=== PATIENT | female | born 1970 | race Two or more races ===

== ENCOUNTER 2024-01-23 13:40 | Emergency (ER) | payer SELFPAY ==
[~2024-01-23] VITALS: Ht 160 cm; Wt 77.1 kg
[2024-01-23] MEDS ORDERED: NAPROXEN 250 MG TABLET ONE (14:42)
[2024-01-23] MEDS: NAPROXEN 250 MG TABLET PO ONE (14:42)
[2024-01-23] MEDS ORDERED: IBUP-1490 PO (16:42)
[2024-01-23] MEDS ORDERED: ACET-2605 PO (16:42)
[2024-01-23 16:52] VITALS: BP 128/69; TEMP 98.7; O2SAT 98
== END 2024-01-23 16:52 | disposition home or self-care (01) ==
LOC: ER 13:49
DX: M25.561 Pain in right knee (principal); M25.511 Pain in right shoulder; M54.50 Low back pain, unspecified; W01.198A Fall on same level from slipping, tripping and stumbling with subsequent striking against other object, initial encounter; Y93.89 Activity, other specified; Y92.89 Other specified places as the place of occurrence of the external cause; Y99.8 Other external cause status
CPT/HCPCS: 72170-TC; 73030-TC; 73564-TC

== ENCOUNTER 2024-01-24 16:40 | Emergency (ER) | payer SELFPAY ==
[~2024-01-24] VITALS: Ht 160 cm; Wt 77.1 kg
[~2024-01-24 16:40] MED LIST: ACET-2605 PO; IBUP-1490 PO
[2024-01-24 17:15] LABS: BASOPHILS % (AUTO) 0.7 % (0.0-2.0); EOSINOPHILS # (AUTO) 0.2 K/uL (0.0-0.7); HEMATOCRIT 41 % (33-45); LYMPHOCYTES # (AUTO) 2.9 K/uL (0.8-4.8); LYMPHOCYTES % (AUTO) 42.9 % (20.0-44.0); MEAN CORPUSCULAR HEMOGLOBIN 29 PG (26.0-33.0); MEAN CORPUSCULAR HGB CONC 34 g/dl (31.0-36.0); MEAN CORPUSCULAR VOLUME 85 fL (82-100); MONOCYTES # (AUTO) 0.7 K/uL (0.1-1.30); MONOCYTES % (AUTO) 9.8 % (2.0-12.0); NEUTROPHILS # (AUTO) 2.9 K/uL (1.8-8.9); NEUTROPHILS % (AUTO) 43.6 % (43.0-81.0); PLATELET COUNT (AUTO) 286 K/uL (150-450); RED BLOOD CELL COUNT(AUTO) 4.81 MIL/uL (4.0-5.2); RED CELL DISTRIBUTION WIDTH 13.7 % (11.5-15.0); WHITE BLOOD COUNT (AUTO) 6.7 K/uL (4.3-11.0)
[2024-01-24 17:26] LABS: CALCIUM, SERUM 8.8 mg/dL (8.5-10.1); CARBON DIOXIDE 28 mmol/L (21-32); CHLORIDE 105 mmol/L (98-107); CREATININE 0.7 mg/dL (0.6-1.3); GLUCOSE 98 mg/dL (74-106); POTASSIUM 3.7 mmol/L (3.5-5.1); SODIUM SERUM 142 mmol/L (136-145); UREA NITROGEN, BLOOD 11 mg/dL (7-18)
[2024-01-24] MEDS ORDERED: NAPROXEN 250 MG TABLET ONE (18:27)
[2024-01-24] MEDS: NAPROXEN 250 MG TABLET PO ONE (18:30)
[2024-01-24 19:40] VITALS: BP 133/85; TEMP 98.3; O2SAT 100
== END 2024-01-24 19:42 | disposition home or self-care (01) ==
LOC: ER 16:40
DX: R07.9 Chest pain, unspecified (principal); W18.39XA Other fall on same level, initial encounter; Y93.89 Activity, other specified; Y92.89 Other specified places as the place of occurrence of the external cause; Y99.8 Other external cause status
CPT/HCPCS: 36415; 71045-TC; 80048-TC; 84484-TC; 85025-TC